=== PATIENT | male | born 1950 | race Caucasian/White ===

== ENCOUNTER 2019-01-29 10:56 | Emergency (ER) | payer OTHER ==
[2019-01-29 11:05] VITALS: BP 122/83; PULSE 77; TEMP 97.8; BMI 28.8
--- NOTE | 2019-01-29 12:52 | PDOC ---
History of Present Illness - General Chief Complaint: Pain Stated Complaint: PAIN Time Seen by Provider: 01/29/19 12:24 History Source: Patient Exam Limitations: Clinical Condition - History of Present Illness Initial Comments: 01/29/19 12:40 Patient with no sick the past medical history present with complaint of pain to right thumb over IP joint of right thumb which has been worsening with locking of the joint of right thumb. Patient denies any trauma or injury to thumb. Patient also reported pain to palm of right hand over thumb. Denies any other symptoms Timing/Duration: 1 week Past History - Past Medical History Allergies/Adverse Reactions: Allergies Allergy/AdvReac Type Severity Reaction Status Date / Time No Known Allergies Allergy Verified 01/29/19 11:06 Home Medications: Ambulatory Orders Naproxen 500 mg PO BID PRN #20 tablet 01/29/19 COPD: No - Suicide/Smoking/Psychosocial Hx Smoking History: Never smoked Review of Systems - Review of Systems Able to Perform ROS?: Yes Is the patient limited Romansh proficient: No Constitutional: No: Chills, Fever HEENTM: No: Symptoms Reported Respiratory: No: Symptoms reported Cardiac (ROS): No: Symptoms Reported ABD/GI: No: Symptoms Reported Musculoskeletal: Yes: See HPI, Joint Pain (IP joint of right thumb), Muscle Pain (right thumb), Joint Stiffness (right thumb) Integumentary: No: Symptoms Reported, Change in Color Neurological: No: Numbness, Paresthesia, Tingling All Other Systems: Reviewed and Negative *Physical Exam - Vital Signs Last Vital Signs Temp Pulse Resp BP Pulse Ox 97.8 F 77 14 122/83 97 01/29/19 11:03 01/29/19 11:03 01/29/19 11:03 01/29/19 11:03 01/29/19 11:03 - Physical Exam Comments: 01/29/19 12:48 GENERAL: Well developed, well nourished. Awake and alert. No acute distress. CARDIOVASCULAR: Regular rate and rhythm. No murmurs, rubs, or gallops. PULMONARY: No evidence of respiratory distress. MUSCULOSKELETAL : Moderate tenderness over IP joint of right thumb and right thenar muscle relocking of IP of right thumb and the flexion position with increased pain to force extension of IP joint of right thumb. No bony deformities SKIN: Warm and dry. Normal capillary refill. No rashes. No jaundice. NEUROLOGICAL: Alert, awake, appropriate. No motor deficits in the lower extremities. Gait is normal without ataxia. PSYCHIATRIC: Cooperative. Good eye contact. Appropriate mood and affect. General Appearance: Yes: Nourished, Appropriately Dressed. No: Apparent Distress ED Treatment Course - RADIOLOGY Radiology Studies Ordered: Category Date Time Status FINGER(S) RIGHT [RAD] Stat Radiology 01/29/19 12:28 Ordered HAND- RIGHT [RAD] Stat Radiology 01/29/19 12:28 Ordered Medical Decision Making - Medical Decision Making 01/29/19 12:49 01/29/19 12:42 Patient with no significant past medical history present with complaint of pain to eye. Joint of right thumb and right to no muscle. Exam significant for moderate tenderness to IP joint to right thumb with locking of IP joint in a flexion position with increased pain with flexion of IP joint of right thumb consistent with trigger finger of right thumb. X-ray of right thumb and hand ordered to rule out acute pathology. Patient be discharged home on naproxen with orthopedic hand follow-up 01/29/19 14:10 X-ray of right thumb and hand shows arthritis changes the IP joint of right thumb. Patient be discharged home on naproxen with orthopedics follow-up for possible cortisone shot in the joint for management of trigger finger. *DC/Admit/Observation/Transfer Diagnosis at time of Disposition: Trigger finger of right thumb - Discharge Dispostion Disposition: HOME Condition at time of disposition: Stable Decision to Admit order: No - Prescriptions Prescriptions: Naproxen 500 mg PO BID PRN #20 tablet PRN Reason: thumb pain - Referrals Referrals: Lalo Gale MD [Staff Physician] - - Patient Instructions Printed Discharge Instructions: DI for Trigger Finger Additional Instructions: Your x-ray shows no and fracture or dislocation. Symptoms likely from locking of the tendon of your finger. Take prescribed medication as needed for pain and follow-up with referred hand orthopedics for management of the hand pain. - Post Discharge Activity
== END 2019-01-29 14:23 | disposition home or self-care (01) ==
LOC: JERFT 10:56
DX: M65.311 Trigger thumb, right thumb (principal); M13.841 Other specified arthritis, right hand
CPT/HCPCS: 73130-TC-RT-FY; 73140-TC-RT-FY; 99281-25